=== PATIENT | male | born 1940 | race African-American/Black ===

== ENCOUNTER → 2017-02-02 | Day surgery (SDC) | payer MEDICARE, OTHER ==
[~2017-02-02] VITALS: Ht 190.5 cm; Wt 112.5 kg
[~2017-02-02] MED LIST: ASPI-1159 PO; ATEN50TA PO; CITA10TA16 PO; CLOP75TA33 PO; DIPHENHYDRAMINE 50MG/ML VIAL ONE; FAMOTIDINE 20MG/2ML VIAL IV ONE; FELO5TAB PO; FENTANYL CITRATE/PF 50MCG/ML 2ML VIAL ONE; FINA5TAB11 PO; GLIP10TA10 PO; HYDR25TA PO; HYDRALAZINE 20MG/ML VIAL ONE; HYDROCORTISONE SOD SUCCINATE 250 MG/2 ML VIAL ONE; IODIXANOL 320MG/ML 100 ML BOTTLE IV ONE; LIDOCAINE HCL 1% 20ML VIAL (Pyxis) INJ ONE; LISI40TA4 PO; METF500T4 PO; MIDAZOLAM HCL 2 MG/2 ML VIAL ONE; REPA0.5T3 PO; SITA100T11 PO; SODIUM CHLORIDE 0.45% 1,000 ML IV SCH; ZET10 PO; [UNRECOGNIZED DRUG - OTHER]; atrovastin
[2017-02-02 07:46] LABS: BASOPHILS % 0.7 % (0.0-2.0); EOSINOPHILS % 1.1 % (0.0-5.0); HEMATOCRIT. 41.3 % (42.0-52.0); HEMOGLOBIN. 13.5 g/dL (14.0-18.0); LYMPHOCYTES % 27.2 % (20.0-50.0); MEAN CORPUSCULAR VOLUME 88.5 fL (80.0-94.0); MEAN PLATELET VOLUME 8.2 fl (7.4-10.4); MONOCYTES % 8.1 % (2.0-8.0); NEUTROPHILS % 62.9 % (40.0-76.0); PLATELET 301 x1000/uL (130-400); RED BLOOD CELL COUNT 4.67 mill/uL (4.7-6.1); RED CELL DISTRIBUTION WIDTH 13.9 % (11.6-14.6)
[2017-02-02 07:57] LABS: INR 1.1; PARTIAL THROMBOPLASTIN TIME 29.2 sec (23.4-31.0); PROTHROMBIN TIME 11.4 sec (9.4-11.6)
[2017-02-02 08:00] LABS: CARBON DIOXIDE 27 mEq/L (21-32); CHLORIDE 103 mEq/L (98-107)
== END | disposition home or self-care (01) ==
LOC: CCL 07:00
PROVIDERS: ATTEND Internal Medicine Cardiovascular Disease
DX: I73.89 Other specified peripheral vascular diseases (principal); E11.621 Type 2 diabetes mellitus with foot ulcer; I10 Essential (primary) hypertension; Z95.1 Presence of aortocoronary bypass graft; Z88.0 Allergy status to penicillin; Z91.041 Radiographic dye allergy status; Z98.890 Other specified postprocedural states
CPT/HCPCS: 36246; 36415; 75710; 80048; 85025; 85610; 85730; C1760; C1769; C1893; J0360; J1200; J1644; J1720; J2250; J3010; J3490; Q9967